=== PATIENT | female | born 1990 | race Caucasian/White ===

== ENCOUNTER 2025-02-16 03:05 | Emergency (ER) | payer SELFPAY ==
[2025-02-16 03:08] VITALS: BP 153/104; PULSE 110; RESP 22; TEMP 36.6; O2SAT 97
[2025-02-16 03:12] VITALS: BP 153/104; PULSE 110; RESP 22; TEMP 36.6; O2SAT 97
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
== END 2025-02-16 03:22 | disposition home or self-care (01) ==
LOC: ER 03:19
PROVIDERS: Emergency Provider Student in an Organized Health Care Education/Training Program
DX: F10.120 Alcohol abuse with intoxication, uncomplicated (principal); S00.31XA Abrasion of nose, initial encounter; X58.XXXA Exposure to other specified factors, initial encounter
CPT/HCPCS: 99283